=== PATIENT | female | born 1990 | race Caucasian/White ===

== ENCOUNTER 2021-07-12 11:53 | Emergency (ER) | payer OTHER, SELFPAY ==
[2021-07-12 12:10] VITALS: BP 151/89; PULSE 91; RESP 18; TEMP 36.6; O2SAT 100
[2021-07-12 12:39] LABS: Basophils Percent Auto 0.3 % (0.2-1.2); Eosinophils Percent Auto 0.3 % (0-4.4); Hematocrit 37.1 % (37.0-47.0); Hemoglobin 12.6 g/dL (12.0-15.0); Immature Granulocyte Absolute 0.02 K/mm3 (0.00-0.031); Immature Granulocyte Percent A 0.3 % (0-0.5); Lymphocytes Absolute Auto 1.89 K/mm3 (0.9-3.2); Lymphocytes Percent Auto 27.2 % (18.3-44.2); Mean Corpuscular Hemoglobin 30.8 pg (26-34); Mean Corpuscular Volume 90.7 fl (80-100); Monocytes Absolute Auto 0.6 K/mm3 (0.1-0.6); Monocytes Percent Auto 7.9 % (2.6-8.5); Neutrophils Absolute Auto 4.5 K/mm3 (1.3-6.7); Platelet Count Result 230 k/mm3 (150-375); Red Blood Count 4.09 M/mm3 (4.2-5.4); Red Cell Distribution Width 11.9 % (11.5-14.5)
[2021-07-12 12:43] LABS: Appearance Urine Clear (Clear); Bilirubin Urine Negative (Negative); Blood Urine Negative (Negative); Color Urine Yellow (Yellow); Glucose Urine UA Negative (Negative); Ketones Urine Negative (Negative); Leukocyte Esterase Ur Negative LEU/UL (Negative); Nitrate Urine Negative (Negative); Protein Urine Negative (Negative); Specific Grav Ur 1.015 (1.001-1.035); Urobilinogen Urine 0.2 mg/dL (<2.0)
[2021-07-12 12:51] LABS: Squamous Epithelial Cell Urine Rare /hpf (Few)
[2021-07-12 12:53] LABS: Add Urine Microscopic? NO
[2021-07-12 12:54] LABS: Alanine Aminotransferase 14 U/L (6-35); Albumin Level 4.6 g/dL (3.5-5.1); Alkaline Phosphatase 49 U/L (38-126); Anion Gap 7 mmol/L (8-16); Aspartate Amino Transferase 23 U/L (14-36); Bilirubin,Total 0.5 mg/dL (0.2-1.3); Blood Urea Nitrogen 11 mg/dL (7-17); Carbon Dioxide 28 mmol/L (22-30); Chloride 103 mmol/L (98-107); Estimated CRCL calculation 100 ml/min; Estimated Glomerular Filt Rate > 60; Glucose 92 mg/dL (65-110); Lipase 131 U/L (23-300); Potassium 4.2 mmol/L (3.4-5.0); Sodium 138 mmol/L (137-145)
--- NOTE | 2021-07-12 14:10 | ED.ABDPAIN ---
HPI - Abdominal Pain General Chief Complaint: Abdominal Pain Stated Complaint: discoloration of schlera Time Seen by Provider: 07/12/21 13:50 History of Present Illness HPI narrative: Patient is a 30-year-old healthy female here for evaluation of yellow conjunctivae for the past 2 days. Patient states that her eyes become more yellow than usual at times. Denies skin jaundice. She does note some intermittent right upper quadrant pain that she likened to menstrual cramping, for the past 3 months, but none recently. Denies any dark stools, dark urine, blood in her stool, diarrhea, nausea, vomiting, fevers. No recent travel or history of IV drug use. Related Data Home Medications Medication Instructions Recorded Confirmed No Home Medications 07/17/20 07/17/20 Allergies Allergy/AdvReac Type Severity Reaction Status Date / Time No Known Allergies Allergy Verified 07/20/20 12:42 Review of Systems Review of Systems: Gen.: Denies fevers or chills Eyes: Positive for yellow sclera. Denies eye pain or visual change ENT: Denies congestion Respiratory: Denies shortness of breath or cough CV: Denies chest pain or palpitations GI: Denies abdominal pain nausea, emesis or diarrhea denies burning, urgency, frequency or hematuria Musculoskeletal: Denies back pain or muscle pain Neuro: Denies numbness, tingling, weakness or focal weakness Skin: Denies rash Except as documented, all other systems reviewed and negative All systems reviewed & are unremarkable except as noted in HPI and below PMFSH Past Medical History Medical History ADD (attention deficit disorder) TMJ (dislocation of temporomandibular joint) Family History Family History Mother Mitral valve prolapse Grandparent Malignant neoplasm of prostate Grandparent Lung cancer Social History Social History (System 07/20/20 @ 12:42 by Emily Royal) Smoking status: Never smoker Second hand tobacco smoke exposure: No Alcohol intake: current Exam Narrative: APPEARANCE: Well appearing, no pain in distress, well-nourished. Head: normocephalic and atraumatic. EYES: There is very mild yellowing of the conjunctive a bilaterally. PERRLA/EOMI NOSE: No nasal drainage EARS: External ear normal in appearance THROAT: Oropharynx is clear. Mucous membranes are moist. NECK: Supple. No adenopathy, no masses. RESPIRATORY: Airway patent, respirations nonlabored. Clear to auscultation bilaterally, no rales, rhonchi, wheezing. CARDIOVASCULAR: Regular rate and rhythm without murmurs, rubs, or gallops. ABDOMINAL: Normoactive bowel sounds. Soft, nontender, nondistended. No rebound tenderness or guarding. MUSCULOSKELETAL: Extremities are warm and well-perfused. Moves all extremities well. No edema. NEURO: Normal speech. No focal neurologic deficits. SKIN: Skin is warm and dry. No rashes. PSYCHIATRIC: Normal affect/mood. Course Vital Signs Vital signs: Vital Signs Temperature 97.9 F 07/12/21 12:10 Pulse Rate 91 07/12/21 12:10 Respiratory Rate 18 07/12/21 12:10 Blood Pressure 151/89 H 07/12/21 12:10 Pulse Oximetry 100 07/12/21 12:10 Temperature 97.9 F 07/12/21 12:10 Pulse Rate 89 07/12/21 14:26 Respiratory Rate 18 07/12/21 14:26 Blood Pressure 148/80 H 07/12/21 14:26 Pulse Oximetry 100 07/12/21 14:26 MDM - Abdominal Pain MDM Narrative Medical decision making narrative: 30-year-old female here with mild scleral icterus for the past 2 days. Vital signs stable, no elevation in liver enzymes. Spoke with patient's primary care nurse practitioner, Genevieve Kwok, regarding icterus. Agrees with outpatient management. She placed an order for an ultrasound of the right upper quadrant and also for hepatitis panel. Patient will complete this as an outpatient, do not feel this is necessary to complete in the ED as
[2021-07-12 14:26] VITALS: BP 148/80; PULSE 89; RESP 18; O2SAT 100
== END 2021-07-12 14:26 | disposition home or self-care (01) ==
PROVIDERS: Family Medicine; Emergency Provider Emergency Medicine; PCP Family Medicine
DX: R17 Unspecified jaundice (principal)
CPT/HCPCS: 36415; 80053; 81003; 81025; 83690; 85025; 99283

== ENCOUNTER 2021-07-19 10:07 | Outpatient (CLI) | payer OTHER, SELFPAY ==
--- NOTE | ~2021-07-19 | US_ITS ---
US abdomen limited INDICATION: Abdominal pain PROCEDURE: Realtime right upper abdominal ultrasound. COMPARISON: No prior studies for comparison. FINDINGS: The pancreas is normal without focal mass or pancreatic ductal dilation. Liver echotexture is normal without focal mass or intrahepatic biliary dilatation. There is normal directional flow i n the portal vein. The gallbladder is normal without stones, gallbladder wall thickening or pericholecystic fluid. Comm on bile duct measures 3 mm. No sonographic Degroot's sign. IMPRESSION: 1: Normal limited abdominal ultrasound. Reviewed, dictated and finalized at location A.
== END 2021-07-19 10:08 ==
PROVIDERS: PCP Family Medicine; Visit Provider Nurse Practitioner Family
DX: R10.9 Unspecified abdominal pain (principal)
CPT/HCPCS: 76705

== ENCOUNTER 2024-09-02 08:38 | Outpatient (CLI) | payer OTHER, SELFPAY ==
--- NOTE | ~2024-09-02 | MR_ITS ---
EXAMINATION: MR shoulder RT wo con DATE: 09/02/2024 09:02 INDICATION: Right shoulder rotator cuff tear or rupture. Right shoulder pain, stiffness and limited r brian of motion. TECHNIQUE: Magnetic resonance imaging (MRI) of the right shoulder was performed without intravenous c ontrast. Sequences included axial PD-weighted FS FSE, coronal oblique PD-weighted FS FSE, coronal obl ique T2-weighted FS FSE, sagittal PD-weighted FS FSE, and sagittal T1-weighted SE. COMPARISON: None. FINDINGS: Coracoacromial arch: The acromion undersurface is flat in morphology (type I). The coracoacromial ligament is normal. Acro mioclavicular joint is normal. Rotator cuff: Mild supraspinatus and subscapularis tendinopathy without discrete tear. The infraspinatus and teres minor tendons are normal. There is mild increased feathery T2 signal in the teres minor, infraspinatu s, supraspinatus and deltoid muscle bellies. Biceps tendon, glenoid labrum and glenohumeral cartilage: Long head of the biceps tendon is normal. Glenoid labrum is normal. Glenohumeral cartilage is normal. Fluid: Physiologic amount of fluid in the glenohumeral joint and biceps tendon sheath. No loose osteochondr al bodies. Small amount of fluid in the subacromial/subdeltoid bursa and subcoracoid bursa consistent with mild bursitis. Bones: Normal marrow signal with no edema, fracture or abnormal marrow replacing process. IMPRESSION: 1. Nonspecific patchy muscular edema-like signal change the supraspinatus, infraspinatus, teres minor and deltoid muscle bellies for which there is a wide differential which includes denervation change, trauma, infectious myositis, inflammatory myopathies including polymyositis, dermatomyositis or othe r autoimmune conditions. 2. Mild supraspinatus and subscapularis tendinopathy without discrete tear. 2. Mild subacromial/subdeltoid and subcoracoid bursitis. Reviewed, dictated and finalized at location B. IMPRESSION: 1. Nonspecific patchy muscular edema-like signal change the supraspinatus, infr aspinatus, teres minor and deltoid muscle bellies for which there is a wide dif ferential which includes denervation change, trauma, infectious myositis, infla mmatory myopathies including polymyositis, dermatomyositis or other autoimmune conditions. 2. Mild supraspinatus and subscapularis tendinopathy without discrete tear. 2. Mild subacromial/subdeltoid and subcoracoid bursitis.
== END 2024-09-02 08:39 | disposition home or self-care (01) ==
PROVIDERS: PCP Chiropractor
DX: M75.81 Other shoulder lesions, right shoulder (principal); M25.411 Effusion, right shoulder; M25.611 Stiffness of right shoulder, not elsewhere classified; M75.51 Bursitis of right shoulder
CPT/HCPCS: 73221